=== PATIENT | male | born 1985 | race Hispanic/Latino ===

== ENCOUNTER 2019-09-21 09:00 | Day surgery (SDC) | payer SELFPAY ==
[2019-09-14 12:57] LABS: BASOPHILS % (AUTO) 0.9 % (0.0-5.0); EOSINOPHILS % (AUTO) 2.8 % (0.0-8.0); HEMATOCRIT 45.6 % (42-54); MEAN CORPUSCULAR HEMOGLOBIN 29.9 pg (27.0-33.0); MEAN CORPUSCULAR HGB CONC 34.6 g/dL (32.0-36.0); MEAN CORPUSCULAR VOLUME 86.2 fL (79-99); MONOCYTES % (AUTO) 7.8 % (3.0-13.0); NEUTROPHILS % (AUTO) 62.5 % (40.0-77.0); PLATELET COUNT (AUTO) 277 K/uL (130-400); RED BLOOD CELL COUNT(AUTO) 5.29 MIL/uL (4.50-6.20); RED CELL DISTRIBUTION WIDTH 11.9 % (11.0-15.5); WHITE BLOOD COUNT (AUTO) 5.7 K/uL (4.8-10.8)
[2019-09-14 13:25] VITALS: BP 125/72
[~2019-09-21] VITALS: Ht 176.5 cm; Wt 82.3 kg
[2019-09-21] VITALS (16 sets, daily range): BP systolic 117–148; BP diastolic 61–93
[~2019-09-21 09:00] MED LIST: LACTATED RINGERS 1000ML 1,000 ML IV SCH
[2019-09-21] MEDS ORDERED: MIDAZOLAM HCL 1 MG/ML 2ML VIAL ONE (13:08)
[2019-09-21] MEDS ORDERED: PROPOFOL 10 MG/ML 20ML VIAL IV ONE (13:08)
[2019-09-21] MEDS ORDERED: FENTANYL CITRATE PF 50 MCG/1 ML 2ML VIAL ONE (13:08)
[2019-09-21] MEDS ORDERED: LIDOCAINE PF 2% 5ML ABBOJECT ONE (13:08)
[2019-09-21] MEDS ORDERED: ROPIVACAINE 0.5% 5MG/ML 30ML IJ ONE (13:10)
[2019-09-21] MEDS ORDERED: ONDANSETRON HCL 4 MG/2 ML VIAL ONE (15:26)
--- NOTE | 2019-09-21 16:50 | NUR ---
PATIENT ARRIVED PATIENT ARRIVED FROM PACU VIA STRETCHER BY ARMINDA THOMAS. PATIENT [id number], RESPIRATIONS UNLABORED, VITAL SIGNS STABLE. DRESSING TO RIGHT LOWER ABDOMEN DRY/INTACT, NO DRAINAGE NOTED.
--- NOTE | 2019-09-21 17:18 | NUR ---
DISCHARGE INSTRUCTIONS PROVIDED TO PATIENT'S SPOUSE AND HANDOUTS PROVIDED AND FOLLOW UP APPOINTMENTS PROVIDED. ALL QUESTIONS/CONCERNS ADDRESSED.
--- NOTE | 2019-09-21 17:40 | NUR ---
PATIENT DISCHARGED FROM FACILITY VIA WHEELCHAIR BY NURSE, PATIENT ASSISTED INTO PRIVATE VEHICLE DRIVEN BY SPOUSE
== END 2019-09-21 17:40 | disposition home or self-care (01) ==
LOC: DAH 09:00
PROVIDERS: ATTEND Surgery
DX: K40.90 Unilateral inguinal hernia, without obstruction or gangrene, not specified as recurrent (principal); E66.3 Overweight; Z68.26 Body mass index [BMI] 26.0-26.9, adult
CPT/HCPCS: 36415; 49505; 64486; 85025; A4215; A4221; A4222; A4223; A4450; A4452; A4663; A4930; C1781; J2001; J2250; J2405; J2704; J2795; J3010; J7120 ×2